=== PATIENT | female | born 1980 | race Caucasian/White ===

== ENCOUNTER 2017-01-21 14:10 | Emergency (ER) | payer OTHER ==
[2017-01-21 14:32] VITALS: BP 96/66; PULSE 60; RESP 20; TEMP 97.6; O2SAT 98
[2017-01-21] MEDS ORDERED: Naproxen 550 mg Tab PO STA (15:21)
--- NOTE | 2017-01-21 15:29 | C.PDOC ---
Time Seen by Provider: 01/21/17 15:14 Chief Complaint (Nursing): Upper Extremity Problem/Injury Past Medical History Vital Signs: Last Vital Signs Temp 97.6 F 01/21/17 14:30 Pulse 60 01/21/17 14:30 Resp 20 01/21/17 14:30 BP 96/66 L 01/21/17 14:30 Pulse Ox 98 01/21/17 14:30 - Social History Hx Alcohol Use: No Hx Substance Use: No - Immunization History Hx Tetanus Toxoid Vaccination: No Hx Influenza Vaccination: No Hx Pneumococcal Vaccination: No ED Course And Treatment O2 Sat by Pulse Oximetry: 98
[2017-01-21] MEDS ORDERED: Naproxen 550 mg Tab PO ONE ×2 (15:33→16:06)
--- NOTE | 2017-01-21 15:46 | RAD ---
PROCEDURE: Radiographs of the Right Shoulder HISTORY: pain COMPARISON: None available. FINDINGS: BONES: No acute displaced fracture. The distal clavicle and underlying ribs appear intact. JOINTS: No acute dislocation. SOFT TISSUES: Soft tissues appear unremarkable. No evidence of radiopaque foreign body. IMPRESSION: No acute displaced fracture or dislocation evident. If symptoms persist or if there is continued clinical concern, x-ray follow-up in 7-10 days should be considered.
--- NOTE | 2017-01-21 15:56 | C.PDOC ---
History Of Present Illness 36 year old patient presents to the ED complaining of right shoulder pain since yesterday. Patient reports she is right hand dominant. Pain aggravated by movement. Patient denies trauma, fever, shortness of breath, chest pain, numbness, or weakness. Time Seen by Provider: 01/21/17 15:14 Chief Complaint (Nursing): Upper Extremity Problem/Injury History Per: Patient History/Exam Limitations: no limitations Onset/Duration Of Symptoms: Days (1) Current Symptoms Are (Timing): Still Present Quality: "Pain" Severity: Mild Pain Scale Rating Of: 3 Exacerbating Factor(s): Movement Recent travel outside of the [place]: No Past Medical History Reviewed: Historical Data, Nursing Documentation, Vital Signs Vital Signs: Last Vital Signs Temp 97.6 F 01/21/17 14:30 Pulse 60 01/21/17 14:30 Resp 20 01/21/17 16:12 BP 96/66 L 01/21/17 14:30 Pulse Ox 98 01/21/17 17:41 Family History: States: Unknown Family Hx - Social History Hx Alcohol Use: No Hx Substance Use: No - Immunization History Hx Tetanus Toxoid Vaccination: No Hx Influenza Vaccination: No Hx Pneumococcal Vaccination: No Review Of Systems Except As Marked, All Systems Reviewed And Found Negative. Constitutional: Negative for: Fever Cardiovascular: Negative for: Chest Pain Respiratory: Negative for: Shortness of Breath Musculoskeletal: Positive for: Shoulder Pain (right) Neurological: Negative for: Weakness, Numbness Physical Exam - Physical Exam Appears: Non-toxic, No Acute Distress Skin: Warm, Dry Head: Atraumatic, Normacephalic Eye(s): bilateral: Normal Inspection, EOMI Nose: Normal Oral Mucosa: Moist Neck: Normal ROM, Supple Chest: Symmetrical Cardiovascular: Rhythm Regular Respiratory: Normal Breath Sounds, No Accessory Muscle Use Back: Normal Inspection Extremity: Capillary Refill (<2 seconds), No Deformity, No Swelling, Other ( anterior shoulder tenderness. pain is aggravated with ROM past 90 degress) Neurological/Psych: Oriented x3, Normal Speech, Normal Cognition, Normal Motor, Normal Sensation Gait: Steady ED Course And Treatment O2 Sat by Pulse Oximetry: 98 (RA) Pulse Ox Interpretation: Normal Progress Note: Plan: -Naproxen. -Right shoulder x-ray. -Reassess and disposition. On reassessment, patient is resting comfortably, and is in no acute distress. Patient was instructed to follow up with physician/clinic in 1- 2 days for further evaluation. Return if symptoms worsen. Disposition - Disposition Referrals: Young Smalls MD [Staff Provider] - Disposition: HOME/ ROUTINE Disposition Time: 15:54 Condition: STABLE Additional Instructions: Follow up with your primary medical doctor or clinic in 2-5 days for further evaluation. Take medications as prescribed. Return to the emergency department at any time if symptoms persist or worsen. Prescriptions: Naproxen [Naprosyn] 1 tab PO BID PRN #20 tab PRN Reason: Pain Instructions: Shoulder Pain (ED) - Clinical Impression Clinical Impression: Shoulder pain - PA / [employer] / Resident Statement MD/DO has reviewed & agrees with the documentation as recorded. - Scribe Statement The provider has reviewed the documentation as recorded by the Scribe Nika Sidhu All medical record entries made by the Scribe were at my direction and personally dictated by me. I have reviewed the chart and agree that the record accurately reflects my personal performance of the history, physical exam, medical decision making, and the department course for this patient. I have also personally directed, reviewed, and agree with the discharge instructions and disposition.
== END 2017-01-21 16:12 | disposition home or self-care (01) ==
LOC: C.ER 14:10
DX: M25.511 Pain in right shoulder (principal)